=== PATIENT | female | born 1990 | race Caucasian/White ===

== ENCOUNTER 2022-04-23 16:23 | Emergency (ER) | payer BC ==
[~2022-04-23] VITALS: Ht 170.2 cm; Wt 54.4 kg
[2022-04-23 17:18] LABS: *BILIRUBIN,URIN NEGATIVE (NEGATIVE); *BLOOD, URINE TRACE (NEGATIVE); *CLARITY,URINE CLEAR (CLEAR); *COLOR,URINE LIGHT YELLOW (YELLOW); *KETONES,URINE NEGATIVE (NEGATIVE); *UROBILINOGEN,URINE 0.2 E.U./dl (NORMAL); LEUKOCYTE ESTERASE ,URINE 1+ (NEGATIVE); NITRITE, URINE NEGATIVE (NEGATIVE); PH,URINE 6.5 (5.0-8.0); UGLUCOSE NEGATIVE (NEGATIVE)
[2022-04-23 17:19] LABS: *URINE HCG, QUAL NEGATIVE (NEGATIVE)
[2022-04-23 17:25] LABS: BACTERIA,URINE MODERATE /HPF (NONE SEEN); SQUAMOUS EPITHELIAL CELL,UR MODERATE /HPF (NONE SEEN)
[2022-04-23] MEDS ORDERED: ERYT3.5O24 RIGHTEYE (18:13)
[2022-04-23] MEDS ORDERED: DIPH25CA83 PO (18:13)
[2022-04-23] MEDS ORDERED: FAMO-132 PO (18:13)
[2022-04-23] MEDS ORDERED: CIPR500T5 PO (18:13)
[2022-04-23] MEDS ORDERED: CIPROFLOXACIN HCL 250 MG TABLET PO ONE (18:30)
[2022-04-23] MEDS ORDERED: CIPROFLOXACIN HCL 250 MG TABLET ONE (18:33)
--- NOTE | 2022-04-23 18:56 | NUR ---
Gave pt RX and d/c instructions, pt verbalized understanding.
== END 2022-04-23 18:57 | disposition home or self-care (01) ==
LOC: ER 16:35
DX: N12 Tubulo-interstitial nephritis, not specified as acute or chronic (principal); H10.9 Unspecified conjunctivitis; Z87.440 Personal history of urinary (tract) infections
CPT/HCPCS: 84703; 87086; A4663

== ENCOUNTER 2022-06-04 19:21 | Emergency (ER) | payer BC ==
[~2022-06-04 19:21] MED LIST: CIPR500T5 PO; DIPH25CA83 PO; ERYT3.5O24 RIGHTEYE; FAMO-132 PO
--- NOTE | 2022-06-04 19:55 | NUR ---
Patient was called to be triaged but was not present in the waiting room or outside of ER.
--- NOTE | 2022-06-04 20:30 | NUR ---
Patient was called to be triaged but was not present in the waiting room or outside of ER. Patient was not triaged or seen by ERMD.
== END 2022-06-04 20:30 | disposition left against medical advice (07) ==
LOC: ER 19:21
DX: Z53.21 Procedure and treatment not carried out due to patient leaving prior to being seen by health care provider (principal)

== ENCOUNTER 2022-07-17 16:53 | Emergency (ER) | payer BC ==
[~2022-07-17] VITALS: Ht 170.2 cm; Wt 54.4 kg
[2022-07-17] MEDS ORDERED: IV NORMAL SALINE 500 ML BAG IV ONE (17:15)
[2022-07-17] MEDS ORDERED: KETOROLAC TROMETHAMINE 15 MG INJ IVP ONE (17:15)
[2022-07-17] MEDS ORDERED: METOCLOPRAMIDE HCL 10 MG/2 ML VIAL IV ONE (17:15)
[2022-07-17] MEDS: MAGNESIUM SULFATE/D5W 100 ML IV SCH ×2 (17:15→18:26)
[2022-07-17 17:29] LABS: HEMATOCRIT 37.7 % (31.2-41.9); MEAN CORPUSCULAR HEMOGLOBIN 30.5 uug (24.7-32.8); MEAN CORPUSCULAR VOLUME 90.4 fL (75.5-95.3); PLATELET COUNT (AUTO) 269 K/uL (179-408)
--- NOTE | 2022-07-17 17:30 | NUR ---
Pt arrived with c/o of low back pain ,headache rated 9/10, characterized as aching and nausea. Denies emesis and syncope. ERMD in room for MSE.
[2022-07-17] MEDS ORDERED: KETOROLAC TROMETHAMINE 15 MG INJ ONE (17:36)
[2022-07-17] MEDS ORDERED: MAGNESIUM SULFATE/D5W 100 ML ONE (17:36)
[2022-07-17] MEDS ORDERED: METOCLOPRAMIDE HCL 10 MG/2 ML VIAL ONE (17:36)
[2022-07-17 17:53] LABS: CREATININE 0.8 mg/dL (0.6-1.3); POTASSIUM 3.6 mmol/L (3.5-5.1)
[2022-07-17 17:58] LABS: BILIRUBIN,TOTAL 0.3 mg/dL (0.2-1.0); TOTAL PROTEIN, SERUM 7.5 g/dL (6.4-8.2)
[2022-07-17 18:01] LABS: *URINE HCG, QUAL NEG (NEGATIVE)
[2022-07-17 18:02] LABS: *BILIRUBIN,URIN NEGATIVE (NEGATIVE); *BLOOD, URINE NEGATIVE (NEGATIVE); *CLARITY,URINE CLEAR (CLEAR); *COLOR,URINE YELLOW (YELLOW); *KETONES,URINE NEGATIVE (NEGATIVE); *UROBILINOGEN,URINE 0.2 E.U./dl (NORMAL); LEUKOCYTE ESTERASE ,URINE 2+ (NEGATIVE); NITRITE, URINE NEGATIVE (NEGATIVE); UGLUCOSE NEGATIVE (NEGATIVE)
[2022-07-17] MEDS ORDERED: NITR100C6 PO (18:36)
--- NOTE | 2022-07-17 18:45 | NUR ---
Patient discharged to home in stable condition. Written and verbal after care instructions given. Patient verbalizes understanding of instructions. Stressed follow up or return to ER for worsening s/s.
[2022-07-17 19:15] LABS: BACTERIA,URINE FEW /HPF (NONE SEEN); RBC,URINE 0-3 /HPF (0-3); SQUAMOUS EPITHELIAL CELL,UR FEW /HPF (NONE SEEN)
== END 2022-07-17 18:46 | disposition home or self-care (01) ==
LOC: ER 16:54
DX: R51.9 Headache, unspecified (principal); J45.909 Unspecified asthma, uncomplicated; Z87.440 Personal history of urinary (tract) infections
CPT/HCPCS: 99285; 96365; 70450; 71045; 96375; 80053; 81001; 84703; 85025; 87086; 36415; 93005; J1885; J3475; J2765; J7040; A4663

== ENCOUNTER 2022-08-12 10:04 | Emergency (ER) | payer BC ==
[~2022-08-12] VITALS: Ht 170.2 cm; Wt 54.4 kg
[~2022-08-12 10:04] MED LIST changes: +NITR100C6 PO
[2022-08-12] MEDS ORDERED: AMOXICILLIN-CLAVUL 875-125MG TABLET PO ONE (11:15)
[2022-08-12] MEDS ORDERED: AMOXICILLIN-CLAVUL 875-125MG TABLET ONE (11:19)
[2022-08-12] MEDS ORDERED: ACETAMINOPHEN 325 MG TABLET PO ONE (11:30)
[2022-08-12] MEDS ORDERED: ACETAMINOPHEN 325 MG TABLET ONE (11:31)
[2022-08-12] MEDS ORDERED: AMOX-430 PO (11:31)
[2022-08-12 12:24] VITALS: BP 114/72
== END 2022-08-12 12:10 | disposition home or self-care (01) ==
LOC: ER 10:04
DX: H66.92 Otitis media, unspecified, left ear (principal); J45.909 Unspecified asthma, uncomplicated
CPT/HCPCS: A4663